=== PATIENT | male | born 1995 | race Caucasian/White ===

== ENCOUNTER 2019-05-01 08:30 | Emergency (ER) | payer SELFPAY ==
[2019-05-01 08:37] VITALS: BP 119/64; PULSE 74; RESP 15; TEMP 36.4; O2SAT 97; BMI 26.6
--- NOTE | 2019-05-01 08:47 | ED.WOUNDLAC ---
HPI - Wound/Laceration General Chief Complaint: Wound/Laceration Stated Complaint: Left hand laceration Time Seen by Provider: 05/01/19 08:42 Source: patient Mode of arrival: Ambulatory Limitations: no limitations History of Present Illness HPI narrative: Patient is a 23-year-old male who presents with left hand laceration he was cutting pairs. He has a flap in his thenar eminence. Bleeding controlled. Denies numbness tingling Or decreased range of motion Related Data Allergies Allergy/AdvReac Type Severity Reaction Status Date / Time No Known Drug Allergies Allergy Verified 05/01/19 08:37 Review of Systems Review of Systems Narrative: GENERAL: Denies chills,fever HEENT: Denies throat pain RESPIRATORY: Denies dyspnea, cough, wheezing CARDIOVASCULAR: Denies chest pain, palpitations GASTROINTESTINAL: Denies nausea, vomiting MUSCULOSKELETAL: Denies extremity pain, injury SKIN: See HPI NEUROLOGIC: Denies weakness, dizziness, headache, numbness 8 point review of systems is negative except for those stated above and HPI [facility] Medical History Hearing impaired person (Acute) Social History (Updated 05/01/19 @ 09:31 by Bozena Gooden DO) Smoking Status: Former smoker alcohol intake: never substance use type: does not use Social History Smoking Status: Former smoker alcohol intake: never substance use type: does not use Exam Initial Vital Signs Initial Vital Signs: Vital Signs Temperature 97.6 F 05/01/19 08:37 Pulse Rate 74 05/01/19 08:37 Respiratory Rate 15 05/01/19 08:37 Blood Pressure 119/64 05/01/19 08:37 Pulse Oximetry 97 05/01/19 08:37 GENERAL: Well-appearing, well-nourished and in no acute distress. CARDIOVASCULAR: peripheral pulses in tact, cap refill <2 sec RESPIRATORY: No respiratory distress, speaks in full sentences without difficulty EXTREMITIES: Normal range of motion, no clubbing or edema. Neurovascularly intact NEUROLOGICAL: Cranial nerves II through XII grossly intact. Normal gait and speech. SKIN: Left hand thenar eminence 2.5 cm flap laceration good skin approximation no muscle or tendon identified Procedures Laceration Repair Laceration 1: Site: hand Side (If applicable): left Size (cm): 2.5 Description: flap Depth: simple, single layer Pre-repair: wound explored and irrigated extensively Skin layer closed with: steri-strips Course Vital Signs Vital signs: Vital Signs - 8 hr 05/01/19 08:37 05/01/19 09:41 Temperature 97.6 F Pulse Rate 74 74 Respiratory Rate 15 15 Blood Pressure 119/64 Blood Pressure [Left Arm] 116/58 L Pulse Oximetry 97 98 Discharge Plan Departure Patient Disposition: Home Clinical Impression: Laceration of hand, left Qualifiers: Encounter type: initial encounter Foreign body presence: without foreign body Qualified Code(s): S61.412A - Laceration without foreign body of left hand, initial encounter Discharge Date/Time: 05/01/19 09:49 Instructions: DI for Laceration Repair Steri-Strips, DI for Minor Laceration Activity Restrictions/Additional Instructions: *You have been diagnosed with laceration left hand *What to do: Let Steri-Strips fall off on their own hopefully in the next couple of days. Keep hand clean and dry with soap and water *Continue to take medications as directed Tylenol 650 mg every 4-6 hours or Motrin 800 mg every 8 hours if needed for mild *Follow up with your primary care provider in 2-3 days *Return to ER if you should have redness pus swelling persistent bleeding or any new, worsening or concerning symptoms Referrals: Bella Morataya MD [Primary Care Provider] -
[2019-05-01 09:41] VITALS: BP 116/58; PULSE 74; RESP 15; O2SAT 98
== END 2019-05-01 09:49 | disposition home or self-care (01) ==
PROVIDERS: Emergency Provider Emergency Medicine; PCP Family Medicine
DX: S61.412A Laceration without foreign body of left hand, initial encounter (principal); W26.0XXA Contact with knife, initial encounter
CPT/HCPCS: 99282; 99283